=== PATIENT | female | born 1935 | race Caucasian/White ===

== ENCOUNTER 2021-04-22 14:05 | Emergency (ER) | payer MEDICARE ==
--- NOTE | 2021-04-22 14:07 | ERPHSYRPT ---
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 Patient has no wheezing or stridor or difficulty breathing at this time. She does not have swelling in her tongue and has no swollen throat. She has had an EpiPen in the past but no longer has 1. Timing/Duration: today Quality: itchy, painful Severity: mild (Moderate) Location: hands, extremities (Bilateral upper) Possible Causes: insect sting Allergies/Adverse Reactions: tetanus and diphtheria toxoids [tetanus & diphtheria toxoids] Allergy (Severe, Verified 04/22/21 14:21) Swelling of Hands bee venom protein (honey bee) Allergy (Verified 04/22/21 14:21) chocolate flavor Allergy (Verified 04/22/21 14:21) Home Medications: Acetaminophen [Tylenol Extra Strength] 500 mg PO UD 03/15/16 [History] Albuterol Sulfate [Proventil Hfa] 2 puffs IH UD 03/15/16 [History] Atorvastatin Calcium [Lipitor] 10 mg PO DAILY 03/15/16 [History] Lansoprazole [Prevacid] 30 mg PO DAILY PRN PRN 03/15/16 [History] Levothyroxine Sodium 112 Mcg [Synthroid 112 Mcg] 112 mcg PO DAILY 03/15/16 [History] Losartan/Hydrochlorothiazide [Losartan-Hctz 50-12.5 mg Tab] 1 tab PO DAILY 03/15/16 [History] Sertraline HCl 50 mg [Zoloft 50 mg Tablet] 50 mg PO DAILY 03/15/16 [History] Theophylline Anhydrous [Theophylline] 400 mg PO BID 03/15/16 [History] Triamterene/Hydrochlorothiazid [Dyazide 37.5-25 Capsule] 1 tab PO DAILY 03/15/16 [History] Verapamil HCl Sr 180 mg [Isoptin Sr 180Mg] 180 mg PO DAILY 03/15/16 [History] diphenhydrAMINE HCL [Benadryl] 03/15/16 [History] Piroxicam [Feldene] 10 mg PO DAILY 03/16/16 [History] Hx Tetanus, Diphtheria Vaccination/Date Given: No Hx Influenza Vaccination/Date Given: Yes Hx Pneumococcal Vaccination/Date Given: Yes Travel Risk - International Travel Have you traveled outside of the country in past 3 weeks: No - Coronavirus Screening Are you exhibiting any of the following symptoms?: No Close contact with a COVID-19 positive Pt in past 14-21 Days: No - Review of Systems Constitutional: No Symptoms Eyes: No Symptoms Ears, Nose, & Throat: No Symptoms Respiratory: No Symptoms Cardiac: No Symptoms Abdominal/Gastrointestinal: No Symptoms Genitourinary Symptoms: No Symptoms Musculoskeletal: No Symptoms Skin: Other (Swelling and redness to bee sting sites bilateral hands and bilateral upper extremities) Neurological: No Symptoms Psychological: No Symptoms Endocrine: No Symptoms Hematologic/Lymphatic: No Symptoms Immunological/Allergic: No Symptoms All Other Systems: Reviewed and Negative - Past Medical History Pertinent Past Medical History: Yes Neurological History: No Pertinent History ENT History: Cataracts Cardiac History: High Cholesterol, Hypertension Respiratory History: Asthma Endocrine Medical History: Hypothyroidism Musculoskeletal History: Arthritis GI Medical History: GERD, Hernia, Polyps History: Other Psycho-Social History: Depression Female Reproductive Disorders: No Pertinent History Other Medical History: cyst on L kidney - Past Surgical History Past Surgical History: Yes Neuro Surgical History: No Pertinent History Cardiac: No Pertinent History Respiratory: No Pertinent History Gastrointestinal: Hernia Repair Genitourinary: No Pertinent History Musculoskeletal: Other Female Surgical History: No Pertinent History Other Surgical History: D&C, POLYPS REMOVED FROM THROAT, L FOOT SURGERY, T&A - Social History Smoking Status: Never smoker Exposure to second hand smoke: No Drug Use: none Patient Lives Alone: Yes - Nursing Vital Signs Nursing Vital Signs: Initial Vital Signs Temperature 97.6 F 04/22/21 14:12 Pulse Rate 70 04/22/21 14:12 Respiratory Rate 18 04/22/21 14:12 Blood Pressure 134/70 04/22/21 14:12 O2 Sat by Pulse Oximetry 94 L 04/22/21 14:12 Pain Scale Pain Intensity 10 - Physical Exam General Appearance: no apparent distress, alert, anxiety Eye Exam: PERRL/EOMI, eyes nml inspection Ears, Nose, Throat Exam: normal ENT inspection, moist mucous membranes Neck Exam: normal inspection, non-tender, supple, full range of motion Respiratory Exam: normal breath sounds, lungs clear, airway intact, No chest tenderness, No respiratory distress, No rhonchi, No wheezing, No stridor Cardiovascular Exam: regular rate/rhythm, normal heart sounds, normal peripheral pulses Gastrointestinal/Abdomen Exam: soft, normal bowel sounds, No tenderness Pelvic Exam: not done Rectal Exam: not done Back Exam: normal inspection, normal range of motion, No CVA tenderness, No vertebral tenderness Extremity Exam: inflammation, swelling, other (Multiple bee sting sites about bilateral hands and bilateral forearms) Neurologic Exam: alert, oriented x 3, cooperative, 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, normal mood/affect, nml cerebellar function, nml station & gait Skin Exam: normal color, warm, dry, other (See above) Lymphatic Exam: No adenopathy SpO2 Interpretation: normal O2 Delivery: Room Air Ordered Tests: Medication Summary Generic Name Dose Route Start Last Admin Trade Name Freq PRN Reason Stop Dose Admin Methylprednisolone Sodium 0 mg 04/22/21 14:20 Succinate 125 mg/ Sterile IM 04/22/21 14:21 Water 2 ml STAT ONE Diphenhydramine HCl 50 mg 04/22/21 14:20 Benadryl 50 Mg/Ml IM 04/22/21 14:21 STAT ONE Famotidine 40 mg 04/22/21 14:20 Pepcid 20 Mg PO 04/22/21 14:21 STAT ONE - Progress Progress: improved, re-examined Counseled pt/family regarding: diagnosis, need for follow-up - Departure Departure Disposition: Home Clinical Impression: Allergic reaction, Bee sting reaction Condition: Stable Critical Care Time: No Referrals: GILMA SWENSON MD [Primary Care Provider] - Additional Instructions: Take medication as prescribed. Use [id number] Benadryl 25 mg orally every 8 hours for the next 4 days. Prescriptions: Prednisone 10 mg [Deltasone 10 mg] 10 mg PO TID #12 tablet Epinephrine [Epipen] 0.3 mg IM UD #2 units Famotidine 20 mg [Pepcid 20 MG] 20 mg PO DAILY #10 tablet
[2021-04-22] MEDS ORDERED: Pepcid 20 MG PO ONE (14:20)
[2021-04-22] MEDS ORDERED: solu-MEDROL 125 MG, Sterile H2O 10 ml 2 ML IM ONE ×2 (14:20)
[2021-04-22] MEDS ORDERED: BENADRYL 50 MG/ML IM ONE (14:20)
[2021-04-22 14:21] VITALS: BP 134/70; O2SAT 96
[2021-04-22] MEDS ORDERED: Pepcid 20 MG ONE (14:24)
[2021-04-22] MEDS ORDERED: Sterile H2O 10 ml IJ ONE (14:24)
[2021-04-22] MEDS ORDERED: solu-MEDROL ONE (14:24)
[2021-04-22] MEDS ORDERED: BENADRYL 50 MG/ML ONE (14:24)
[2021-04-22 14:40] VITALS: PULSE 64
== END 2021-04-22 15:00 | disposition home or self-care (01) ==
LOC: ED 14:05
DX: T63.441A Toxic effect of venom of bees, accidental (unintentional), initial encounter (principal)
CPT/HCPCS: 96372; 99283; J1200; J2930; A9270-GY

== ENCOUNTER 2021-06-15 13:43 | Emergency (ER) | payer MEDICARE ==
--- NOTE | 2021-06-15 14:12 | ERPHSYRPT ---
- History of Present Illness Time Seen by Provider: 06/15/21 13:45 Source: patient Exam Limitations: no limitations Patient Subjective Stated Complaint: fall prior to arrival Triage Nursing Assessment: pt to ED by EMS c/o fall today r/t gout pain. pt states R foot was hurting her and caused her to lose balance. A&Ox2, unaware of time. skin tear noted to L wrist, open to air and bleeding controlled. 1 cm laceration noted to R forehead, dressed with gauze by EMS and bleeding controlled when bandage removed. denies pain at this time, just states "not feeling well." Physician History: 85 years old female with history of hypertension, hypothyroidism, GERD, gout presented in the ER with chief complaint of fall and right forehead laceration. Patient reports she was having some dull pain in right foot, bent over, lost balance and hit her head against the hot water heater prior to arrival without any loss of consciousness. Denies any blurry vision, focal numbness tingling or weakness. Denies any neck pain. She has some abrasion to left wrist but no difficulty movements. Denies any chest pain palpitations or shortness of breath before or after the fall. No nausea vomiting or abdominal pain. No injury anyw here else. She is complaining of mild headache in the right forehead area and does not want any pain medications for it. Not taking any blood thinners. Occurred: just prior to arrival Severity: moderate Head Injury Location: frontal Method of Injury: fell Loss of Consciousness: no loss of consciousness Associated Symptoms: denies symptoms Allergies/Adverse Reactions: tetanus and diphtheria toxoids [tetanus & diphtheria toxoids] Allergy (Severe, Verified 06/15/21 13:53) Swelling of Hands bee venom protein (honey bee) Allergy (Verified 06/15/21 13:53) chocolate flavor Allergy (Verified 06/15/21 13:53) Home Medications: Acetaminophen [Tylenol Extra Strength] 500 mg PO UD 03/15/16 [History] Albuterol Sulfate [Proventil Hfa] 2 puffs IH UD 03/15/16 [History] Atorvastatin Calcium [Lipitor] 10 mg PO DAILY 03/15/16 [History] Lansoprazole [Prevacid] 30 mg PO DAILY PRN PRN 03/15/16 [History] Levothyroxine Sodium 112 Mcg [Synthroid 112 Mcg] 112 mcg PO DAILY 03/15/16 [History] Losartan/Hydrochlorothiazide [Losartan-Hctz 50-12.5 mg Tab] 1 tab PO DAILY 03/15/16 [History] Sertraline HCl 50 mg [Zoloft 50 mg Tablet] 50 mg PO DAILY 03/15/16 [History] Theophylline Anhydrous [Theophylline] 400 mg PO BID 03/15/16 [History] Triamterene/Hydrochlorothiazid [Dyazide 37.5-25 Capsule] 1 tab PO DAILY 03/15/16 [History] Verapamil HCl Sr 180 mg [Isoptin Sr 180Mg] 180 mg PO DAILY 03/15/16 [History] diphenhydrAMINE HCL [Benadryl] 03/15/16 [History] Piroxicam [Feldene] 10 mg PO DAILY 03/16/16 [History] Hx Tetanus, Diphtheria Vaccination/Date Given: No Hx Influenza Vaccination/Date Given: Yes Hx Pneumococcal Vaccination/Date Given: No Immunizations Up to Date: No Travel Risk - International Travel Have you traveled outside of the country in past 3 weeks: No - Coronavirus Screening Are you exhibiting any of the following symptoms?: No Close contact with a COVID-19 positive Pt in past 14-21 Days: No - Vaccine Status Have you recieved a Covid-19 vaccination: No 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 - Vaccination Dates Dates if Unknown: unknown, 2 doses - Review of Systems Constitutional: No Symptoms Eyes: Photophobia Ears, Nose, & Throat: No Symptoms Respiratory: No Symptoms Cardiac: No Symptoms Abdominal/Gastrointestinal: No Symptoms Genitourinary Symptoms: No Symptoms Musculoskeletal: Injury Skin: Skin Lesions Neurological: Headache Psychological: No Symptoms Endocrine: No Symptoms Hematologic/Lymphatic: No Symptoms Immunological/Allergic: No Symptoms - Past Medical History Pertinent Past Medical History: Yes Neurological History: No Pertinent History ENT History: Cataracts Cardiac History: High Cholesterol, Hypertension Respiratory History: Asthma Endocrine Medical History: Hypothyroidism Musculoskeletal History: Arthritis GI Medical History: GERD, Hernia, Polyps History: Other Psycho-Social History: Depression Female Reproductive Disorders: No Pertinent History Other Medical History: cyst on L kidney - Past Surgical History Past Surgical History: Yes Neuro Surgical History: No Pertinent History Cardiac: No Pertinent History Respiratory: No Pertinent History Gastrointestinal: Hernia Repair Genitourinary: No Pertinent History Musculoskeletal: Other Female Surgical History: No Pertinent History Other Surgical History: D&C, POLYPS REMOVED FROM THROAT, L FOOT SURGERY, T&A - Social History Smoking Status: Never smoker Exposure to second hand smoke: No Drug Use: none Patient Lives Alone: Yes - Female History Hx Now: No - Nursing Vital Signs Nursing Vital Signs: Initial Vital Signs Temperature 97.9 F 06/15/21 13:44 Pulse Rate 63 06/15/21 13:44 Respiratory Rate 20 06/15/21 13:44 Blood Pressure 146/65 06/15/21 13:44 O2 Sat by Pulse Oximetry 96 06/15/21 13:44 Pain Scale Pain Intensity 2 - [place] Coma Score Best Eye Response ([place]): (4) open spontaneously Best Verbal Response ([place]): (5) oriented Best Motor Response ([place]): (6) obeys commands [place] Total: 15 - Physical Exam General Appearance: no apparent distress, alert Head Injury: contusions, lacerations (1.5 cm right forehead, not scalp D.), tenderness (No step in deformity) Eye Exam: bilateral eye: normal inspection, PERRL, EOMI ENT Exam: airway nml, No evidence of ENT injury, No dental injury Neck Exam: supple, trachea midline, full range of motion, normal alignment, normal inspection Cardiovascular/Respiratory Exam: chest non-tender, normal breath sounds, regular rate/rhythm Gastrointestinal/Abdominal Exam: soft, non tender Back Exam: normal inspection, normal range of motion Extremity Exam: non-tender, normal range of motion Mental Status Exam: alert, oriented x 3, 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 Exam: normal hearing, normal speech, PERRL Coordination/Gait Exam: normal finger to nose Motor/Sensory Exam: no motor deficit, no sensory deficit, no pronator drift DTR Exam: bicep (R): 2+, bicep (L): 2+, knee (R): 2+, knee (L): 2+ Skin Exam: normal color, other (Abrasion left wrist) SpO2 Interpretation: normal ( wrist) SpO2: 96 O2 Delivery: Room Air Procedures - Laceration/Wound Repair Right Frontal Time of Procedure: 15:21 Wound Location: Right Wound Length (cm): 1.5 Wound's Depth, Shape: into muscle, linear Wound Explored: clean Irrigated: Yes Hibiclens Prep: Yes Anesthesia: 1% Lidocaine Volume Anesthetic (ccs): 2 Wound Repaired With: sutures Suture Size/Type: 5-0, ethilon Number of Sutures: 4 Layer Closure?: No Sterile Dressing Applied?: Yes Ordered Tests: Active Orders 24 hr Category Date Time Status CERVICAL SPINE WO CONTRAST [CT] Stat Exams 06/15/21 13:59 Completed HEAD WITHOUT CONTRAST [CT] Stat Exams 06/15/21 13:59 Completed Medication Summary Discontinued Medications Generic Name Dose Route Start Last Admin Trade Name Valerie PRN Reason Stop Dose Admin Lidocaine HCl Confirm 06/15/21 15:06 Xylocaine 1% Hcl 20 Ml Mdv Administered 06/15/21 15:07 Dose 1 ml .ROUTE .SHOP.CA ONE - Progress Progress: improved Progress Note: 06/15/21 15:41 She is offered pain medication which she refused. CT head and cervical spine negative for any acute findings. No limitation range of motion of left wrist. No injury anywhere else. It was a clearly mechanical fall. Do not think needs any other work-up. Nonfocal neuro exam grossly. Laceration is repaired. Outpatient follow-up. Discussed signs symptoms of worsening/head injury needing return to ER which she seems understanding. Stable for discharge. Counseled pt/family regarding: diagnosis, need for follow-up, rad results - Departure Departure Disposition: Home Clinical Impression: Forehead laceration Qualifiers: Encounter type: initial encounter Qualified Code(s): S01.81XA - Laceration without foreign body of other part of head, initial encounter Fall Qualifiers: Encounter type: initial encounter Qualified Code(s): W19.XXXA - Unspecified fall, initial encounter Condition: Stable Critical Care Time: No Referrals: GILMA SWENSON MD [Primary Care Provider] - (1-2 days for reevaluation.) Instructions: Preventing Falls, Head Injury Observation (DC) Additional Instructions: Follow head injury instructions. Take Tylenol as needed. Do not take ibuprofen. Stay with a responsible person for next 48 hours with frequent neuro checks and return to ER if has any worsening of headache, altered mental status, confusion, focal numbness tingling weakness or blurry vision. Suture removal in 5 to 7 days.
--- NOTE | 2021-06-15 14:44 | XRAY ---
Indication: Status post fall. Multiple contiguous axial images obtained through the head without contrast. Comparison: August 16, 2017. Again age-appropriate global atrophy, minimal periventricular degenerative micro-ischemia bilaterally, and benign physiologic basal ganglia calcifications. No acute intracranial hemorrhage, abnormal extra-axial fluid collection, or mass effect. Fourth ventricle is midline without hydrocephalus. Bony calvarium intact. Visualized paranasal sinuses and mastoid air cells are clear. Impression: Continued nonacute senile brain.
--- NOTE | 2021-06-15 14:48 | XRAY ---
Indication: Status post fall. Multiple contiguous images obtained through the cervical spine. Sagittal and coronal reformatted images obtained. Comparison: May 14, 2015. Osseous structures remain demineralized. Axial images negative for acute fracture, suspicious bony lesions, or spinal canal stenosis. Again mild C4-C7 degenerative endplate spurring and mild/moderate multilevel bilateral degenerative facet hypertrophy. Sagittal and coronal reformatted images again demonstrates lordotic straightening, positional versus paraspinal spasm. Minimal C3-C7 degenerative disc space narrowing. No acute compression fracture, subluxation, or jumped facet. Normal appearing craniocervical junction. Visualized noncontrasted soft tissues again demonstrates moderate bilateral carotid calcifications and left apical pleural parenchymal fibrosis/scarring. Impression: 1. Continued negative for acute fracture/subluxation. 2. Again cervical lordotic straightening, positional versus paraspinal spasm. 3. Again incidental osteopenia and multilevel degenerative spondylosis.
[2021-06-15] MEDS ORDERED: XYLOCAINE 1% HCL 20 ML MDV ONE (15:06)
[2021-06-15 16:15] VITALS: BP 153/68; PULSE 88; O2SAT 97
== END 2021-06-15 16:18 | disposition home or self-care (01) ==
LOC: ED 13:43
DX: S01.81XA Laceration without foreign body of other part of head, initial encounter (principal); S60.812A Abrasion of left wrist, initial encounter; W01.198A Fall on same level from slipping, tripping and stumbling with subsequent striking against other object, initial encounter; I10 Essential (primary) hypertension; E03.9 Hypothyroidism, unspecified; K21.9 Gastro-esophageal reflux disease without esophagitis; M79.671 Pain in right foot; Z79.899 Other long term (current) drug therapy
CPT/HCPCS: 12011; 70450; 72125; 99284